=== PATIENT | female | born 1940 | race Caucasian/White ===

== ENCOUNTER → 2019-01-11 | Outpatient (CLI) | payer MEDICARE ==
[~2019-01-11] MED LIST: AMLO2.5T5 PO; ASCO250T2 PO; CALC-126 PO; CETI10CA PO; CITA20TA9 PO; ESTR42.58 TP; HYDROCHLOROTH12.5 MG PO; MELA3TAB15 PO; MONT10TA9 PO; MULT-658 PO; MV-M1TAB16 PO; VIT1CAPS42 PO
[2019-01-11 09:19] LABS: MICROSCOPIC AUTO
[2019-01-11 09:22] LABS: CULTURE INDICATED? YES
[2019-01-11 09:29] LABS: ALANINE AMINOTRANSFERASE 19 U/L (12-78); ALBUMIN 3.4 g/dL (3.4-5.0); ANION GAP 3 mmol/L (5-15); CHLORIDE 106 mmol/L (98-107); CREATININE 0.88 mg/dL (0.55-1.02)
[2019-01-11 09:31] LABS: ALKALINE PHOSPHATASE 84 U/L (45-117); BILIRUBIN,TOTAL 0.3 mg/dL (0.2-1.0); TOTAL PROTEIN 7.4 g/dL (6.4-8.2)
== END | disposition home or self-care (01) ==
LOC: STAR 07:48
PROVIDERS: ATTEND Orthopaedic Surgery
DX: Z01.818 Encounter for other preprocedural examination (principal); M19.111 Post-traumatic osteoarthritis, right shoulder
CPT/HCPCS: 36415; 80053; 81001; 87081; 87086; 93005

== ENCOUNTER 2019-01-15 05:15 | Inpatient (IN) | payer MEDICARE ==
[~2019-01-15] VITALS: Ht 154.9 cm; Wt 56.1 kg
[2019-01-15] MEDS ORDERED: LACTATED RINGERS 1,000 ML IV SCH (06:07)
[2019-01-15] MEDS ORDERED: MIDAZOLAM 1 MG/ML, 2ML ONE (06:46)
[2019-01-15] MEDS ORDERED: FENTANYL PF 250 MCG/5ML ONE (06:47)
[2019-01-15] MEDS ORDERED: PROPOFOL 10 MG/ML, 20ML ONE (06:48)
[2019-01-15] MEDS ORDERED: FAMOTIDINE 20 MG TABLET ONE (06:58)
[2019-01-15] MEDS ORDERED: GABAPENTIN 300 MG CAPSULE ONE (06:58)
[2019-01-15] MEDS ORDERED: ACETAMINOPHEN 500 MG TABLET ONE (06:58)
[2019-01-15] MEDS ORDERED: ACETAMINOPHEN 500 MG TABLET PO ONE (07:00)
[2019-01-15] MEDS ORDERED: FAMOTIDINE 20 MG TABLET PO ONE (07:00)
[2019-01-15] MEDS ORDERED: GABAPENTIN 300 MG CAPSULE PO ONE (07:00)
[2019-01-15] MEDS ORDERED: DEXAMETHASONE 4 MG/ML, 1ML ONE ×2 (07:26→08:38)
[2019-01-15] MEDS ORDERED: CEFAZOLIN 1,000 MG ONE ×2 (07:27)
[2019-01-15] MEDS ORDERED: TRANEXAMIC ACID 100 MG/ML, 10ML ONE ×2 (07:50)
[2019-01-15] MEDS ORDERED: PROMETHAZINE 25 MG/ML, 1ML IV PRN (08:30)
[2019-01-15] MEDS ORDERED: HYDROmorphone 2 MG/ML, 1ML IVPush PRN (08:30)
[2019-01-15] MEDS ORDERED: ONDANSETRON 2MG/ML, 2ML IV PRN ×2 (08:30→11:00)
[2019-01-15] MEDS ORDERED: DIAZEPAM 5 MG/ML, 2ML IVPush PRN (08:30)
[2019-01-15] MEDS ORDERED: hydrALAzine 20 MG/ML, 1ML IV PRN (08:30)
[2019-01-15] MEDS ORDERED: LABETALOL 5MG/ML, 20ML IV PRN (08:30)
[2019-01-15] MEDS ORDERED: OXYcodone 5 MG/5 ML ORAL.SOL UDC PO PRN (08:30)
[2019-01-15] MEDS ORDERED: FENTANYL PF 100 MCG/2ML IV PRN (08:30)
[2019-01-15] MEDS ORDERED: ONDANSETRON 2MG/ML, 2ML ONE (08:38)
[2019-01-15] MEDS ORDERED: ROCURONIUM 10MG/ML,5ML ONE (08:38)
[2019-01-15] MEDS ORDERED: SUCCINYLCHOLINE 20 MG/ML, 10ML ONE (08:38)
[2019-01-15] MEDS: MELOXICAM 15 MG TABLET PO SCH (10:43)
[2019-01-15] MEDS ORDERED: SENNA/DOCUSATE TABLET PO PRN (11:00)
[2019-01-15] MEDS ORDERED: SODIUM CHLORIDE 0.9% 1,000 ML IV SCH (11:00)
[2019-01-15 13:15] VITALS: BP 96/58
[2019-01-15] MEDS: ACETAMINOPHEN 500 MG TABLET PO SCH ×2 (15:23→21:32)
[2019-01-15] MEDS: CEFAZOLIN PMX 1GM/50ML 50 ML IVPB SCH ×2 (15:23→23:32)
[2019-01-15] MEDS: OXYcodone 5 MG/5 ML ORAL.SOL UDC PO PRN ×2 (18:28→22:13)
[2019-01-15 18:58] VITALS: BP 104/70
[2019-01-15] MEDS: SODIUM CHLORIDE FLUSH 10ML SYR IVF SCH (21:00)
[2019-01-15 23:36] VITALS: BP 97/50
[2019-01-16] MEDS: ACETAMINOPHEN 500 MG TABLET PO SCH ×2 (03:20→08:41)
[2019-01-16 03:22] VITALS: BP 99/57
[2019-01-16 05:56] LABS: BASOPHILS # (AUTO) 0.01 x10^3/uL (0-0.1); BASOPHILS % (AUTO) 0 % (0-1); EOSINOPHILS # (AUTO) 0.04 x10^3/uL (0-0.4); EOSINOPHILS % (AUTO) 1 % (1-7); LYMPHOCYTES # (AUTO) 0.59 x10^3/uL (1-3.4); LYMPHOCYTES % (AUTO) 8 % (22-44); MD NO; MEAN CORPUSCULAR HEMOGLOBIN 31.3 pg (27.0-34.8); MEAN CORPUSCULAR HGB CONC 32.5 g/dL (32.4-35.8); MEAN CORPUSCULAR VOLUME 96.1 fL (80-100); MONOCYTES # (AUTO) 0.78 x10^3/uL (0.2-0.8); MONOCYTES % (AUTO) 11 % (2-9); NEUTROPHILS # (AUTO) 5.67 x10^3/uL (1.8-6.8); NEUTROPHILS % (AUTO) 80 % (42-75); PLATELET COUNT 182 x10^3/uL (130-400); RED BLOOD COUNT 3.13 x10^6/uL (3.82-5.3); RED CELL DISTRIBUTION WIDTH 14.2 % (9.6-15.2)
[2019-01-16 06:06] LABS: ALBUMIN 2.8 g/dL (3.4-5.0); ANION GAP 7 mmol/L (5-15); CHLORIDE 104 mmol/L (98-107)
[2019-01-16 06:08] LABS: CALCIUM 8.2 mg/dL (8.5-10.1); CREATININE 0.91 mg/dL (0.55-1.02)
[2019-01-16 07:21] VITALS: BP 102/49
[2019-01-16] MEDS ORDERED: SODIUM CHLORIDE 0.9%, 500ML IVBOLUS ONE (08:30)
[2019-01-16] MEDS: MELOXICAM 15 MG TABLET PO SCH (08:41)
[2019-01-16] MEDS: SODIUM CHLORIDE FLUSH 10ML SYR IVF SCH (08:43)
[2019-01-16] MEDS ORDERED: CITALOPRAM 20 MG TABLET PO SCH (09:00)
[2019-01-16] MEDS ORDERED: MONTELUKAST 10 MG TABLET PO SCH (09:00)
[2019-01-16] MEDS ORDERED: HYDROCHLOROTHIAZIDE 12.5 MG CAPSULE PO SCH (09:00)
[2019-01-16] MEDS ORDERED: AMLODIPINE 2.5 MG TABLET PO SCH (09:00)
== END 2019-01-16 12:07 | disposition home or self-care (01) | DRG 483 ==
LOC: ORIP 05:15 → EDSTATUS 07:30 → MERGE 07:30 → 4NOR 10:17 → DCLOUNGE 01-16 11:50
PROVIDERS: ADMIT Orthopaedic Surgery; ATTEND Orthopaedic Surgery
PROC: 3E0T3BZ Introduction of Anesthetic Agent into Peripheral Nerves and Plexi, Percutaneous Approach (ICD-10-PCS; 2019-01-15)
PROC: 0RRJ00Z Replacement of Right Shoulder Joint with Reverse Ball and Socket Synthetic Substitute, Open Approach (ICD-10-PCS; principal; 2019-01-15 07:30)
DX: M75.101 Unspecified rotator cuff tear or rupture of right shoulder, not specified as traumatic (principal); D62 Acute posthemorrhagic anemia; M19.011 Primary osteoarthritis, right shoulder; I10 Essential (primary) hypertension; Z96.653 Presence of artificial knee joint, bilateral; Z88.5 Allergy status to narcotic agent; Z91.041 Radiographic dye allergy status; Z91.040 Latex allergy status; Z80.51 Family history of malignant neoplasm of kidney; Z82.49 Family history of ischemic heart disease and other diseases of the circulatory system; Z87.891 Personal history of nicotine dependence; Z98.1 Arthrodesis status
CPT/HCPCS: 36415; 80048; 82040; 85025; C1713; C1776; G0378; J0690; J1100; J2250; J2405; J2704; J3010; J0330; J7040; J7120

== ENCOUNTER 2020-03-08 13:56 | Observation (INO) | payer MEDICARE ==
[~2020-03-08] VITALS: Ht 152.4 cm; Wt 63.2 kg
[~2020-03-08 13:56] MED LIST changes: +MONT10TA11 PO; -MONT10TA9 PO
--- NOTE | 2020-03-08 14:11 | NUR ---
PT BIB [facility], PT WITH SYNCOPAL EVENT TODAY FELL AND HIT BACK OF HEAD. R GOOSEHEAD TO BACK OF SCALP. PT WITH NO MEMORY OF EVENT, STATES SHE AWOKE ON THE GROUND. PT DENIES CP, SOB. PT WITH DIZZINESS UPON SITTING UP. ERPROVIDER IN TO EVAL PT, PT TO CARD MONITOR, BP, CONT PULSE OX
[2020-03-08 14:39] LABS: ALANINE AMINOTRANSFERASE 21 U/L (12-78); ALBUMIN 3.1 g/dL (3.4-5.0); ANION GAP 9 mmol/L (5-15); BASOPHILS % (AUTO) 0 % (0-1); CALCIUM 8.5 mg/dL (8.5-10.1); CHLORIDE 104 mmol/L (98-107); CREATININE 0.84 mg/dL (0.55-1.02); EOSINOPHILS % (AUTO) 0 % (1-7); LYMPHOCYTES # (AUTO) 0.25 x10^3/uL (1-3.4); LYMPHOCYTES % (AUTO) 4 % (22-44); MD NO; MEAN CORPUSCULAR HEMOGLOBIN 30.3 pg (27.0-34.8); MEAN CORPUSCULAR HGB CONC 32.4 g/dL (32.4-35.8); MEAN CORPUSCULAR VOLUME 93.5 fL (80-100); MEAN PLATELET VOLUME 7.5 fL (7.4-10.4); MONOCYTES # (AUTO) 0.26 x10^3/uL (0.2-0.8); MONOCYTES % (AUTO) 4 % (2-9); NEUTROPHILS # (AUTO) 6.35 x10^3/uL (1.8-6.8); NEUTROPHILS % (AUTO) 93 % (42-75); PLATELET COUNT 272 x10^3/uL (130-400); RED BLOOD COUNT 3.89 x10^6/uL (3.82-5.3); RED CELL DISTRIBUTION WIDTH 13.7 % (9.6-15.2)
[2020-03-08 14:43] LABS: ALKALINE PHOSPHATASE 74 U/L (45-117); BILIRUBIN,TOTAL 0.6 mg/dL (0.2-1.0); TOTAL PROTEIN 7.6 g/dL (6.4-8.2); TROPONIN I < 0.015 ng/mL (0.000-0.045)
[2020-03-08] MEDS ORDERED: MECLIZINE CHEWABLE 25 MG TAB ONE (15:47)
[2020-03-08] MEDS ORDERED: SODIUM CHLORIDE 0.9% 1,000ML IVBOLUS ONE (16:00)
[2020-03-08] MEDS ORDERED: MECLIZINE CHEWABLE 25 MG TAB PO ONE (16:00)
[2020-03-08 18:46] VITALS: BP 117/68
[2020-03-08] MEDS ORDERED: BISACODYL 10 MG SUPP PR PRN (19:00)
[2020-03-08] MEDS ORDERED: POTASSIUM CHLORIDE 20 MEQ TAB.ER.PRT PO ONE (19:00)
[2020-03-08] MEDS ORDERED: OXYcodone IR 5MG TABLET PO PRN (19:00)
[2020-03-08] MEDS ORDERED: POLYETHYLENE GLYCOL 17 GM PACKET PO PRN (19:00)
[2020-03-08] MEDS ORDERED: ACETAMINOPHEN 325 MG TABLET PO PRN (19:00)
[2020-03-08] MEDS ORDERED: hydrALAzine 20 MG/ML, 1ML IVPush PRN (19:00)
[2020-03-08] MEDS: ENOXAPARIN 40 MG/0.4 ML SQ SCH (19:52)
[2020-03-08] MEDS ORDERED: MECLIZINE 25 MG TABLET PO PRN (20:00)
[2020-03-08] MEDS ORDERED: MECLIZINE 25 MG TABLET PO SCH (21:00)
[2020-03-08 21:38] VITALS: BP 108/63
[2020-03-08 22:35] LABS: MICROSCOPIC INDICATED
[2020-03-09] VITALS (9 sets, daily range): BP systolic 103–131; BP diastolic 61–73
[2020-03-09 06:08] LABS: BASOPHILS # (AUTO) 0.02 x10^3/uL (0-0.1); BASOPHILS % (AUTO) 0 % (0-1); EOSINOPHILS # (AUTO) 0.08 x10^3/uL (0-0.4); EOSINOPHILS % (AUTO) 1 % (1-7); LYMPHOCYTES % (AUTO) 13 % (22-44); MD NO; MEAN CORPUSCULAR HEMOGLOBIN 30.5 pg (27.0-34.8); MEAN CORPUSCULAR HGB CONC 32.3 g/dL (32.4-35.8); MEAN CORPUSCULAR VOLUME 94.4 fL (80-100); MEAN PLATELET VOLUME 7.6 fL (7.4-10.4); MONOCYTES # (AUTO) 0.69 x10^3/uL (0.2-0.8); MONOCYTES % (AUTO) 13 % (2-9); NEUTROPHILS # (AUTO) 3.96 x10^3/uL (1.8-6.8); NEUTROPHILS % (AUTO) 73 % (42-75); PLATELET COUNT 247 x10^3/uL (130-400); RED BLOOD COUNT 3.61 x10^6/uL (3.82-5.3); RED CELL DISTRIBUTION WIDTH 14.2 % (9.6-15.2)
[2020-03-09 06:16] LABS: ANION GAP 6 mmol/L (5-15); CALCIUM 8.2 mg/dL (8.5-10.1); CHLORIDE 111 mmol/L (98-107)
[2020-03-09 06:29] LABS: CREATININE 0.71 mg/dL (0.55-1.02)
[2020-03-09] MEDS: MELATONIN 3 MG TABLET PO SCH ×2 (09:00→20:47)
[2020-03-09] MEDS: MULTIVITAMIN 1 TABLET PO SCH (09:51)
[2020-03-09] MEDS: PANTOPRAZOLE 40 MG IV IVPush SCH (09:51)
[2020-03-09] MEDS: SENNA/DOCUSATE TABLET PO SCH (09:51)
[2020-03-09] MEDS: CALCIUM/VITAMIN D3 250-125 TABLET PO SCH (09:52)
[2020-03-09] MEDS: MONTELUKAST 10 MG TABLET PO SCH (09:52)
[2020-03-09] MEDS: CETIRIZINE 10 MG TABLET PO SCH (09:52)
[2020-03-09] MEDS: CITALOPRAM 20 MG TABLET PO SCH (09:52)
[2020-03-09] MEDS ORDERED: GADOTERATE 7.5 MMOL/15 ML SYR ONE (11:42)
[2020-03-09] MEDS: ENOXAPARIN 40 MG/0.4 ML SQ SCH (18:12)
[2020-03-10 03:38] VITALS: BP 138/71
[2020-03-10 06:55] VITALS: BP 123/75
[2020-03-10] MEDS: CITALOPRAM 20 MG TABLET PO SCH (08:59)
[2020-03-10] MEDS: PANTOPRAZOLE 40 MG IV IVPush SCH (08:59)
[2020-03-10] MEDS: MULTIVITAMIN 1 TABLET PO SCH (08:59)
[2020-03-10] MEDS: CETIRIZINE 10 MG TABLET PO SCH (09:00)
[2020-03-10] MEDS: MONTELUKAST 10 MG TABLET PO SCH (09:00)
[2020-03-10] MEDS: CALCIUM/VITAMIN D3 250-125 TABLET PO SCH (09:00)
[2020-03-10] MEDS: SENNA/DOCUSATE TABLET PO SCH (09:01)
[2020-03-10 09:30] VITALS: BP 126/70
[2020-03-10 09:39] VITALS: BP 125/87
[2020-03-10 09:42] VITALS: BP 120/68
== END 2020-03-10 14:35 | disposition home or self-care (01) ==
LOC: ED 17:05 → EDIP 17:06 → INTOOBSV 17:06 → ED 17:23 → 5SO 18:34 → DCLOUNGE 03-10 07:48 → 5SO 03-10 07:52 → DCLOUNGE 03-10 14:28
PROVIDERS: ADMIT Family Medicine; ATTEND Internal Medicine
DX: H81.12 Benign paroxysmal vertigo, left ear (principal); R55 Syncope and collapse; E44.1 Mild protein-calorie malnutrition; E87.6 Hypokalemia; I10 Essential (primary) hypertension; E86.0 Dehydration; R73.9 Hyperglycemia, unspecified; Z68.23 Body mass index [BMI] 23.0-23.9, adult; Z91.81 History of falling; Z79.899 Other long term (current) drug therapy
CPT/HCPCS: 36415; 70450; 70553; 71045; 80048; 80053; 81001; 83036; 84443; 84484; 85025; 87086; 93005; 93306; 93880; 96361; 96372; 96374; 97112; 97161; 99285; A9575; C9113; G0378; J1650; J7030; 96360